=== PATIENT | male | born 1945 | race Caucasian/White ===

== ENCOUNTER 2020-09-26 00:26 | Emergency (ER) | payer OTHER ==
[2020-09-26] MEDS ORDERED: D50W 25 GM/50 ML SYRINGE IV ONE (00:27)
[2020-09-26] MEDS ORDERED: EPINEPHrine 1 MG/10 ML SYR IV ONE (00:27)
--- OUTSIDE RECORDS SUMMARY | 2020-09-26 00:30 | XMS REPORT | Continuity of Care Document ---
:1945 Author Organization [facility] t Address [address] [place] [address] Care Team Providers Name Role Phone Michele MAHMOOD Primary Care Physician Michele MAHMOOD Attending Clinician Jeromy ABREU Attending Clinician Unavailable ROVERTO Attending Clinician Unavailable DONNA Attending Clinician Unavailable ROVERTO Attending Clinician Unavailable Payers Payer Name Policy Type Policy Effective Date Expiration Date Sour ce Number MEDICAREMEDICARE PART [id number] 2008 Skyler Tucker AND 00:00:00 Church [id number] 2007 -[facility] COMMERCIAL MISCMISC [id number] [place] [id number] 00:00:00 Met conti /05/2000-Ousmane coppolal Problems Condition Condition Condition Status Onset Resolution Last Treating Co mments Source Name Details Category Date Date Treatment Clinician Date Atrial Atrial Disease Active 2016-05 [place] fibrillati fibrillati 0-23 Me thodi on on 00:00: st 00 Benign Benign Disease Active 2016-05 [place] hypertensi hypertensi 0-23 Me thodi on on 00:00: st 00 Cardiomyop Cardiomyop Disease Active 2016-05 H sai athy athy 0-23 Methodi 00:00: st 00 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 0-23 Me thodi athy athy 00:00: st 00 Congestive Congestive Disease Active 2016-05 H sai heart heart 0-23 Methodi failure failure 00:00: st 00 Hyperlipid Hyperlipid Disease Active 2016-05 H [facility] emia emia 0-23 Methodi 00:00: st 00 History of History of Problem Resolve Univers hypertensi hypertensi d it y of on on [place] Physici ans History of History of Problem Resolve Univers glaucoma glaucoma d ity of [place] Physici ans History of History of Problem Resolve Univers hemorrhoid hemorrhoid d it y of s s [place] Physici ans History of History of Problem Resolve Univers Hernia Hernia d ity of [place] Physici ans Left hip Left hip Problem Active Unive rs pain pain ity of [place] Physici ans [place] Problem Active Univers metatarsal metatarsal it y of [place], left [place] Status Status Problem Active Univers post total post total it y of [place] t of left t of left Phys ici hip hip ans Pain in Pain in Problem Active Univers prosthetic prosthetic it y of joint, joint, [place] subsequent subsequent Ph ysici encounter encounter ans Bilateral Bilateral Problem Active Uni vers knee pain knee pain ity of [place] Physici ans Primary Primary Problem Active Univers osteoarthr osteoarthr it y of itis of itis of [place] both knees both knees Ph ysici ans Iliotibial Iliotibial Problem Active U nivers band band ity of syndrome syndrome [place] of left of left Physici side side ans [place] Problem Active Univers trochanter trochanter it y of ic ic [place] bursitis bursitis Physic i of left of left ans hip hip Primary Primary Problem Active Univers osteoarthr osteoarthr it y of itis of itis of [place] right knee right knee Ph ysici ans Aftercare Aftercare Problem Active Uni vers following following ity of right knee right knee [place] joint joint Physici replacemen replacemen an s t surgery t surgery Status Status Problem Active Univers post total post total it y of right knee right knee [place] replacemen replacemen Ph ysici t t ans Fibrosis Fibrosis Problem Active Unive rs of right of right [place] knee joint knee joint [place] ans Lumbar Lumbar Problem Active Univers radiculopa radiculopa it y of thy, acute thy, acute [place] ans Allergies, Adverse Reactions, Alerts This patient has no known allergies or adverse reactions. Family History Family Member Diagnosis Comments Start Date Stop Date Source Mother Family history of [facility] [place] malignant neoplasm Physic ians Father Family history of [facility] [place] hypertension Physicians Social History Social Habit Start Date Stop Date Quantity Comments Source Tobacco use and 2019-03-16 2019-03-16 Never used Ghassan Devries ethodist exposure 00:00:00 00:00:00 Alcohol intake 2019-03-16 2019-03-16 Current Ghassan Wagner thodist 00:00:00 00:00:00 non-drinker of alcohol (finding) Sex [birth year] Ghassan Devries ethodist 00:00:00 00:00:00 Smoking Status Start Date Stop Date Source Never smoker Ferrell Methodis t Medications Ordered Filled Start Stop Current Ordering Indication Dosage Frequency Signature Comments Components Source Medication Medication Date Date Medication? Clinician (SIG) Name Name metoprolol Yes PVC TAKE 1 [place] tartrate 3-08 (premature TABLET BY Methodi (LOPRESSOR) 00:00: ventricular MOUTH st 25 mg 00 contraction TWICE A tablet ) DAY enalapril 1 Yes PVC 10mg Q.5D Take 1 [place] (VASOTEC) 0-05 (premature tablet (10 Methodi 10 MG 00:00: ventricular mg total) st tablet 00 contraction by mouth 2 ) (two) times a day. Acetaminoph Acetaminoph 2020-0 Yes DEN Q0.25D TAKE 1 Univers en-Codeine en-Codeine 6-23 SABBARA TABLET 4 ity of 300-30 MG 300-30 MG 00:00: IMAGING AIDE TIMES [place] Oral Tablet Oral Tablet 00 DAILY Physici NEEDED FOR ans PAIN. neomycin-po 2019-0 Yes 1[drp] Q.25D 1 drop 4 [place] lymyxin-dex 3-09 (four) Method i amethasone 13:26: times a st (MAXITROL) 55 day. 3.5mg/mL-10 ,000 unit/mL-0.1 % ophthalmic suspension traMADol 2020-0 Yes 50mg Q6H Take 50 mg Essie ston (ULTRAM) 50 3-09 by mouth Meth lydia mg tablet 13:26: every 6 st 55 (six) hours as needed for moderate pain. TURMERIC 2020-0 Yes Take by [place] ORAL 3-09 mouth. Methodi 13:26: st 55 metoprolol 2019-0 2020- No PVC 25mg Q.5D Take 1 [place] tartrate 3-09 03-08 (premature tablet (25 Methodi (LOPRESSOR) 00:00: 00:00 ventricular mg total) st 25 mg 00 :00 contraction by mouth 2 tablet ) (two) times a day. enalapril 2020- No PVC 10mg QD Take 1 [place] (VASOTEC) 3 10- (premature tablet (10 Methodi 10 MG 00:00: 00:00 ventricular mg total) st tablet 00 :00 contraction by mouth ) daily. Amoxicillin Amoxicillin Yes DEN TAKE 1 Univers -Pot -Pot 1-06 SABBARA TABLET BY ity of Clavulanate Clavulanate 00:00: IMAGING AIDE MOUTH [place] 875-125 MG 875-125 MG 00 TWICE A Physici Oral Tablet Oral Tablet DAY a ns BEGINNING 2 DAYS BEFORE DENTAL APPOINTMEN T HYDROcodone HYDROcodone Yes JESU 1 Q6H TAKE 1 Univers -Acetaminop -Acetaminop 6-18 ROSE-BAR TABLET ity of hen 10-325 hen 10-325 00:00: RE M.D. EVERY 6 [place] MG Oral MG Oral 00 HOURS PRN Phys ici Tablet Tablet ans meloxicam Yes 7.5mg QD Take 7.5 Essie ston (MOBIC) 7.5 3-01 mg by Methodi mg tablet 00:00: mouth st 00 daily. with food sildenafil Yes 50mg Q24H Take 2 [place] (VIAGRA) 25 5-24 tablets Metho di MG tablet 00:00: ([address] 00 total) by mouth daily as needed for erectile dysfunctio n for up to 20 doses. tadalafil Yes 10mg Q24H Take 1 [place] (CIALIS) 10 5-21 tablet (10 Me thodi MG tablet 00:00: mg total) st 00 by mouth daily as needed for erectile dysfunctio n. COMBIGAN 2016- Yes Ferrell 0.2-0.5 % 1-13 Methodi ophthalmic 00:00: st solution 00 TRAVATAN Z Yes PUT 1 DROP [place] 0.004 % 2-03 INTO BOTH Methodi 00:00: EYES AT st 00 BEDTIME Enalapril Enalapril Yes Q0.5D TAKE 1 Un elier Maleate 10 Maleate 10 TABLET i ty of MG Oral MG Oral TWICE [place] Tablet Tablet DAILY. Physici ans Metoprolol Metoprolol Yes Q0.5D TAKE 1 Univers Tartrate 25 Tartrate 25 TABLET ity of MG Oral MG Oral TWICE [place] Tablet Tablet DAILY. Physici ans Furosemide Furosemide Yes QD TAKE 1 U nivers 20 MG Oral 20 MG Oral TABLET i ty of Tablet Tablet DAILY [place] DIRECTED. Physici ans Aspirin Aspirin Yes QD TAKE 1 Univers Adult Low Adult Low TABLET ity of Strength 81 Strength 81 DAILY [place] MG Oral MG Oral DIRECTED. Phys ici Tablet Tablet ans Delayed Delayed Release Release Travatan Z Travatan Z Yes 1 QD INSTILL 1 Univers 0.004 % 0.004 % DROP DAILY ity of Ophthalmic Ophthalmic in each [place] Solution Solution eye Physici ans Vital Signs Vital Name Observation Time Observation Value Comments Source BP Systolic 2018-12-10 108 mm[Hg] Location: [facility] 14:32:00 Position: [place] Physician s Sitting BP Diastolic 2018-12-10 63 mm[Hg] Location: [facility] 14:32:00 Position: [place] Physician s Sitting Weight 2018-12-10 220 [lb_av] [facility] 14:32:00 [place] Physician s Body Mass Index 2018-12-10 33.45 kg/m2 University o f Calculated 14:32:00 [place] Physician s Heart Rate 2018-12-10 76 /min [facility] 14:32:00 [place] Physician s BP Systolic 2018-11-10 105 mm[Hg] Location: [facility] 13:26:00 Position: [place] Physician s Sitting BP Diastolic 2018-11-10 69 mm[Hg] Location: [facility] 13:26:00 Position: [place] Physician s Sitting Height 2018-11-10 68 [in_us] [facility] 13:26:00 [place] Physician s Weight 2018-11-10 222 [lb_av] [facility] 13:26:00 [place] Physician s Body Mass Index 2018-11-10 33.76 kg/m2 University o f Calculated 13:26:00 [place] Physician s Heart Rate 2018-11-10 67 /min [facility] 13:26:00 [place] Physician s BP Systolic 2018-06-11 113 mm[Hg] Location: [facility] 10:07:00 Position: [place] Physician s Sitting BP Diastolic 2018-06-11 62 mm[Hg] Location: [facility] 10:07:00 Position: [place] Physician s Sitting Weight 2018-06-11 222 [lb_av] [facility] 10:07:00 [place] Physician s Body Mass Index 2018-06-11 33.76 kg/m2 University o f Calculated 10:07:00 [place] Physician s Heart Rate 2018-06-11 48 /min [facility] 10:07:00 [place] Physician s BP Systolic 2017-12-30 141 mm[Hg] Location: [facility]; [facility] 09:14:00 Position: [place] Physician s Sitting BP Diastolic 2017-12-30 87 mm[Hg] Location: [facility]; [facility] 09:14:00 Position: [place] Physician s Sitting Height 2017-12-30 68 [in_us] University 09:14:00 [place] Physician s Weight 2017-12-30 234 [lb_av] [facility] 09:14:00 [place] Physician s Body Mass Index 2017-12-30 35.58 kg/m2 University o f Calculated 09:14:00 [place] Physician s Heart Rate 2017-12-30 58 /min Location: R [facility] 09:14:00 Radial; [place] Physician s BP Systolic 2017-08-16 153 mm[Hg] Location: [facility]; [facility] 09:13:00 Position: [place] Physician s Sitting BP Diastolic 2017-08-16 70 mm[Hg] Location: [facility] 09:13:00 Position: [place] Physician s Sitting Weight 2017-08-16 233 [lb_av] [facility] 09:13:00 [place] Physician s Body Mass Index 2017-08-16 35.43 kg/m2 Eunice o f Calculated 09:13:00 [place] Physician s Heart Rate 2017-08-16 52 /min [facility] 09:13:00 [place] Physician s BP Systolic 2017-07-22 135 mm[Hg] Location: [facility]; [facility] 11:18:00 Position: [place] Physician s Sitting BP Diastolic 2017-07-22 83 mm[Hg] Location: [facility]; [facility] 11:18:00 Position: [place] Physician s Sitting Weight 2017-07-22 233 [lb_av] [facility] 11:18:00 [place] Physician s Body Mass Index 2017-07-22 35.43 kg/m2 University o f Calculated 11:18:00 [place] Physician s Heart Rate 2017-07-22 53 /min [facility] 11:18:00 [place] Physician s Procedures Procedure Date / Time Performing Clinician Source Performed [U] XRAY HIP UNILATERAL 2019-10-27 00:00:00 [facility] MIN 2 VWS LEFT [id number] Physicians NM Bone scan 3 phase 2019-10-27 00:00:00 [facility] [id number] Physicians MRI Spine lumbar wo 2019-10-27 00:00:00 [facility] contrast [id number] Physicians [U] [facility]RAY KNEE 3 [facility] 2019-10-23 00:00:00 [facility] RIGHT [id number] Physicians [U] XRAY KNEE 3 [facility] 2019-06-08 00:00:00 [facility] RIGHT [id number] Physicians [U] XRAY KNEE 3 [facility] 2019-05-18 00:00:00 [facility] RIGHT [id number] Physicians [U] XRAY KNEE 3 [facility] 2018-12-24 00:00:00 [facility] RIGHT [id number] Physicians Initial Promis 2018-12-11 00:00:00 [facility] Survey Physicians Post Op Promis 29 2018-11-05 00:00:00 [facility] Survey Physicians [U] XRAY KNEE 3 [facility] 2018-11-03 00:00:00 [facility] RIGHT [id number] Physicians Initial Promis 2018-09-26 00:00:00 [facility] Survey Physicians History of Femur [facility] exas fracture repair Physicians History of Hernia [facility] repair Physicians History of Total Knee [facility] Replacement Right Physicians History of Knee surgery [facility] Physicians Plan of Care Planned Activity Planned Date Details Comments Source Future Scheduled 2020-12-04 INFLUENZA VACCINE Leslieto gemma [facility] 00:00:00 [code = INFLUENZA VACCINE] Future Scheduled 1993 SHINGLES VACCINES (#1) H sai [facility] 00:00:00 [code = SHINGLES VACCINES (#1)] Future Scheduled 1961 Hepatitis C screening Ho alda [facility] 00:00:00 (procedure) [code = 744273777] Future Scheduled 1955 COVID-19 VACCINE (1) Essie rider [facility] 00:00:00 [code = COVID-19 VACCINE (1)] Future Scheduled 1951 65+ PNEUMOCOCCAL Ferrell [facility] Test 00:00:00 VACCINE (1 of 2 - PPSV23) [code = 65+ PNEUMOCOCCAL VACCINE (1 of 2 - PPSV23)] Encounters Start End Encounter Admission Attending Care Care Encounter Source Date/Time Date/Time Type Type Clinicians Facility Department ID 2019-11-04 Outpatient [facility] [id number] [facility] 12:29:37 [facility] 2019-12-22 2019-12-22 Appointmen [facility] [id number] Univers 11:15:00 11:15:00 t; kim CRENSHAW of [facility] Prahba CRENSHAWtammy IMAGING AIDE ans 2019-11-03 2019-11-03 Outpatient [facility] MED [id number] MH 08:51:00 08:51:00 [facility] 2019-10-27 2019-10-27 Appointmen [facility] Orthopedics [id number] Univers 13:30:00 13:30:00 t; Francisco Javier CRENSHAW [facility] Rebeca CRENSHAW [facility] ans 2019-07-13 2019-07-13 [facility] [id number] [place] [address] 00:00:00 00:00:00 MIGUEL A [address] 2019-06-10 2019-06-10 [facility] Orthopedics [id number] Univers 11:45:00 11:45:00 t; JESU Baird [place] i ty of [place] Jessica [facility] JESU CAI, Physi ci M.DAlana ans 2019-05-20 2019-05-20 [facility] Orthopedics [id number] Univers 11:15:00 11:15:00 t; JESU Baird [place] i ty of [place] Jessica [facility] JESU CAI, Physi ci M.DAlana ans 2019-02-18 2019-02-18 [facility] Orthopedics [id number] Univers 11:00:00 11:00:00 t; JESU Baird [place] i ty of [place] Jessica [place] JESU CAI, Physi ci M.D. ans 2019-01-28 2019-01-28 [facility] Orthopedics [id number] Univers 11:30:00 11:30:00 t; JESU Baird - [place] i ty of [place] Jessica [place] JESU CAI, Physi ci M.D. ans 2019-01-07 2019-01-07 Appointmen JUAN [facility] Orthopedics [id number] Univers 11:00:00 11:00:00 t; JESU Baird [place] i ty of [place] Jessica [place] JESU CAI, Physi ci M.D. ans 2018-12-24 2018-12-24 [facility] [id number] Univers 09:30:00 09:30:00 t; Francisco Javier CRENSHAWland ity of [facility] Rebeca CRENSHAW [facility] 2018-12-16 2018-12-16 Appointmen [facility] Orthopedics [id number] Univers 16:00:00 16:00:00 t; JESU Baird [place] i ty of [place] Jessica [place] JESU CAI, Physi ci M.D. ans 2018-12-10 2018-12-10 [facility] [id number] Univers 13:45:00 13:45:00 t; Francisco Javier CRENSHAWland ity of [facility] Rebeca CRENSHAW [facility] 2018-11-10 2018-11-10 [facility] [id number] Univers 13:15:00 13:15:00 t; Francisco Javier CRENSHAW ity of [facility] Rebeca CRENSHAW [facility] ans 2018-11-03 2018-11-03 [facility] [id number] Univers 11:15:00 11:15:00 t; Francisco Javier CRENSHAW ity of [facility] Rebeca CRENSHAW [facility] ans 2018-10-21 2018-10-21 Appointmen [facility] Orthopedics [id number] Univers 12:00:00 12:00:00 t; JESU Baird [place] i ty of [place] Jessica [place] JESU CAI, Physi ci M.D. ans 2018-10-08 2018-10-08 Appointmen J[facility]AN [facility] Orthopedics [id number] Univers 11:45:00 11:45:00 t; JESU Baird [place] i ty of [place] Jessica [place] JESU CAI, Physi ci M.D. ans 2018-09-10 2018-09-10 Appointmen [facility] Orthopedics [id number] Univers 09:15:00 09:15:00 t; JESU Baird, - [place] i ty of [place] Jessica [facility] JESU CAI, Physi ci M.D. ans 2018-07-23 2018-07-23 [facility] [id number] Univers 10:00:00 10:00:00 t; DEN, Orthopedics it y of [facility] DEN Physici IMAGING AIDE ans 2018-06-11 2018-06-11 [facility] [id number] Univers 09:30:00 09:30:00 t; DEN, Orthopedics it y of [facility] DEN, Physici IMAGING AIDE ans 2018-02-19 2018-02-19 [facility] [id number] Univers 13:45:00 13:45:00 t; DEN, Orthopedics it y of [facility] DEN Physici IMAGING AIDE ans 2017-12-30 2017-12-30 [facility] [id number] Univers 09:00:00 09:00:00 t; DEN, Orthopedics it y of [facility] DEN, Physici IMAGING AIDE ans 2017-10-28 2017-10-28 [facility] [id number] Univers 13:45:00 13:45:00 t; DEN, Orthopedics it y of [facility] DEN Physici IMAGING AIDE ans 2017-09-30 2017-09-30 [facility] [id number] Univers 11:00:00 11:00:00 t; JESU Baird, ity of JESU Laguerre M.D., Physi ci M.D. ans 2017-08-16 2017-08-16 [facility] [id number] Univers 09:00:00 09:00:00 t; DEN, Orthopedics it y of [facility] DEN Physici IMAGING AIDE ans 2017-07-22 2017-07-22 Appointmen [facility] [id number] Univers 10:45:00 10:45:00 t; JESU Baird, Orthopedics ity of [facility] s RE, JESU, Physi ci M.D. ans 2017-04-01 2017-04-01 Appointmen JUAN [facility] [id number] Univers 11:00:00 11:00:00 t; JESU Baird [facility] RE, JESU, Physi ci M.D. ans 2017-03-20 2017-03-20 [facility] [id number] Univers 11:00:00 11:00:00 t; WALTRE CRENSHAW Orthopedics ity of [facility] WALTER CRENSHAW Physi ci ans 2017-03-13 2017-03-13 [facility] [id number] Univers 11:15:00 11:15:00 t; WALTER CRENSHAW Orthopedics ity of [facility] WALTER CRENSHAW Physi ci ans 2017-03-06 2017-03-06 Appoint[facility] [id number] Univers 11:00:00 11:00:00 t; WALTER CRENSHAW ity of [place], [place] DEN, MATERIAL SCHEDULER Physi ci ans 2017-02-27 2017-02-27 [facility] [id number] Univers 11:00:00 11:00:00 t; WALTER CRENSHAW ity of [place], [place] DEN, MATERIAL SCHEDULER Physi ci ans 2017-02-20 2017-02-20 [facility]oint[facility] [id number] Univers 11:15:00 11:15:00 t; WALTER CRENSHAW ity of [place], [place] DEN, MATERIAL SCHEDULER Physi ci ans 2017-02-04 2017-02-04 [facility] [id number] Univers 11:15:00 11:15:00 t; JESU Baird Orthopedics ity of [facility] s RE, JESU, Physi ci M.D. ans 2016-12-24 2016-12-24 Appointmen [facility] [id number] Univers 09:15:00 09:15:00 t; [facility] [place] JESU CAI, Physi ci M.D. ans 2016-11-07 2016-11-07 Appointmen JUAN [facility] UTP [id number] Univers 08:30:00 08:30:00 t; [facility]ESU [facility]aird [facility] [place] JESU CAI, Physi ci M.D. ans 2016-09-14 2016-09-14 Appointmen ROVERTO JOSE [facility] [id number] Univers 09:30:00 09:30:00 t; WALTER CRENSHAW itml [facility] [place] WALTER CRENSHAW Physi ci ans Results Test Description Test Time Test Comments Results Result Sourc e Comments [U] XRAY HIP 2019-10-27 Images University o f UNILATERAL MIN 2 13:39:00 acquired, not [place] VWS LEFT [id number] reported on Physician s this accession number. [U] XRAY KNEE 3 2019-10-27 Images Universit y of VWS RIGHT [id number] 13:28:00 acquired, not [place] reported on Physicians this accession number. [U] XRAY KNEE 3 2019-06-10 Images Universit y of VWS RIGHT [id number] 12:08:00 acquired, not [place] reported on Physicians this accession number. [U] XRAY KNEE 3 2019-01-07 Images Universit y of VWS RIGHT [id number] 12:09:00 acquired, not [place] reported on Physicians this accession number. [U] XRAY KNEE 3 2018-11-03 Images Universit y of VWS RIGHT [id number] 12:13:00 acquired, not [place] reported on Physicians this accession number. [U] XRAY KNEE 3 2018-09-10 Images Universit y of VWS RIGHT [id number] 09:48:00 acquired, not [place] reported on Physicians this accession number.
--- NOTE | 2020-09-26 01:09 | EDPHYS ---
Physician Documentation [facility] Name: Scar Haynes Age: 75 yrs Sex: Male : 1945 Arrival Date: 09/26/2020 Time: 00:35 Bed 3 Private MD: ED Physician Dagoberto Renee HPI: 09/26 00:51 This 75 yrs old Male presents to ER via EMS with unknown complaint. pkl 00:51 Patient collapsed at home. Family started. PD and EMS arrived at the scene continued pkl CPR for another 45 mins. Historical: - Allergies: 00:48 No Known Allergies; bb - Home Meds: 00:48 Enalapril Oral [Active]; Metoprolol Tartrate Oral [Active]; tizanidine oral oral bb [Active]; Tramadol Oral [Active]; - PMHx: 00:48 Atrial Fib; Hypertension; bb ROS: 00:51 Unable to obtain ROS due to comatose state, patient is on ventilator. pkl 01:05 ENT: Negative for injury, pain, and discharge. pkl Exam: 00:51 Head/Face: Normocephalic, atraumatic. pkl 00:51 Eyes: Pupils: are fixed and dilated. 00:51 Neck: Exam negative for acute changes. 00:51 Chest/axilla: Inspection: no acute changes. 00:51 Cardiovascular: Rate: Asystole. 00:51 Respiratory: Patient intubated. 00:51 Neuro: Orientation: unable to test, the patient is comatose, Motor: unable to test, the patient is comatose. MDM: 00:36 Patient medically screened. pkl 00:51 Data reviewed: vital signs, nurses notes. ED course: Patient unresponsive. No vital pkl signs. Patient pronounced at 12.28 A. M. Family notified of patient's disposition. Administered Medications: 00:26 Drug: EPINEPHrine 0.1mg/mL 1:10,000 1 mg {Note: IO left lower extremity.} Route: IVP; bb Site: Other; 00:46 Follow up: Response: No change in condition bb Disposition: 00:51 . pkl Disposition: Patient pronounced on 09/26/20 00:28 by Dagoberto Renee. Impression: Cardio-respiratory arrest.. Signatures: Renee, Pin, MD Marci Bhatt, RN RN Jani Galaviz RN RN jb4 Corrections: (The following items were deleted from the chart) 03:03 01:08 09/26/2020 01:08 Patient pronounced on 09/26/2020 at 00:28 by Dagoberto Renee. jb4 Impression: Cardio-respiratory arrest.. ramy
--- NOTE | 2020-09-26 01:09 | ER ---
Nurse's Notes [facility] Name: Scar Haynes Age: 75 yrs Sex: Male : 1945 Arrival Date: 09/26/2020 Time: 00:35 Bed 3 Private MD: Diagnosis: Cardio-respiratory arrest. Presentation: 09/26 00:24 Chief complaint: EMS states: they were toned out for report of pt having collapsed at bb home with CPR started by family, PD was on scene on their arrival and had shocked the pt x 2. Care prior to arrival: Oral intubation, CPR via thumper performed by EMS was defibrillated Medication(s) given: epinephrine x 4 by EMS, Amiodarone 300 mg by EMS. Compressions began prior to arrival. 00:24 Method Of Arrival: EMS: [facility] bb 00:24 Acuity: BORA 1 bb Historical: - Allergies: 00:48 No Known Allergies; bb - Home Meds: 00:48 Enalapril Oral [Active]; Metoprolol Tartrate Oral [Active]; tizanidine oral oral bb [Active]; Tramadol Oral [Active]; - PMHx: 00:48 Atrial Fib; Hypertension; bb Assessment: 00:24 CPR assessment: unresponsive, no respiratory effort, Ambu ventilation, cyanotic. bb Cardiac rhythm is asystole. 00:35 General: Behavior is unresponsive. Neuro: Level of Consciousness is unresponsive. jb4 Cardiovascular: Skin appears cyanotic, and cool.. Rhythm is asystole. Respiratory: Airway via oral intubation. Derm: Skin is intact, Skin is dry, Skin is mottled, pale, Skin temperature is cool. ED Course: 00:35 Patient arrived in ED. jb4 00:36 Dagoberto Renee MD is Attending Physician. pkl 00:43 Triage completed. bb 01:07 Dagoberto Renee MD is Pronouncing Provider. pkl Administered Medications: 00:26 Drug: EPINEPHrine 0.1mg/mL 1:10,000 1 mg {Note: IO left lower extremity.} Route: IVP; bb Site: Other; 00:46 Follow up: Response: No change in condition bb Outcome: 00:28 Outcome Patient bb 00:28 Patient : jb4 00:28 Condition: 03:03 Patient left the ED. jb4 Signatures: Dagoberto Renee MD MD pkl Ballard, Brenda, RN RN bb Jani Valentino, DENISSE RN jb4
== END 2020-09-26 03:03 ==
LOC: ER 00:26
DX: I46.9 Cardiac arrest, cause unspecified (principal); I10 Essential (primary) hypertension; I48.91 Unspecified atrial fibrillation
CPT/HCPCS: 92950; 96374; 99285; J0171